=== PATIENT | male | born 1985 | race American Indian/Alaskan Native ===

== ENCOUNTER 2016-07-09 18:33 | Emergency (ER) | payer MEDICAID ==
--- NOTE | 2016-07-16 11:27 | ED Elopement Review ---
ED Pt Elopement review - Call Back decision Pt Call Back Decision: No action required
== END 2016-07-09 23:29 | disposition left against medical advice (07) ==
LOC: ED 18:33
DX: F12.10 Cannabis abuse, uncomplicated (principal); R53.83 Other fatigue; Z53.21 Procedure and treatment not carried out due to patient leaving prior to being seen by health care provider
CPT/HCPCS: 93005; 93010